=== PATIENT | female | born 1985 | race Caucasian/White ===

== ENCOUNTER 2016-10-07 21:01 | Emergency (ER) | payer MEDICAID ==
--- NOTE | 2016-10-09 04:19 | ER ---
ADMIT: 10/07/2016 RM/LOC: ER [facility] MR#: [id number] [address] [id number] DHEERAJ MCNEAL [address] [place] [address] Emergency Room Report SEX: F AGE: 30 : 1985 DATE: 10/07/2016 ADDENDUM: See T-sheet for complete H and P. A 30-year-old female, history of asthma, smokes about two packs a day, comes in short of breath. She states she feels like her asthma is getting worse. She has not been on steroids for several months now for her asthma. She does normally use a Proventil inhaler but ran out of it this morning. She did have gallbladder surgery approximately a week ago. She said she has been recovering fine from that. On physical exam, she does have some wheezes throughout but decent air movement initially. We did get her a DuoNeb and that improved her wheezes and she said she was feeling better. She was also given 60 mg of prednisone in the Emergency Department. A chest x-ray was done, which reveals no acute abnormality and her sats are fine and she is breathing comfortably, in no respiratory distress. She will be discharged home with instructions to quit smoking and to use a prednisone taper, which she is given a prescription for. She is also given albuterol inhaler here, and since she does not have a doctor in the area, she was given follow up with Dr. Livan Birmingham if she is not significantly improved next week. DIAGNOSES: 1. Acute asthma exacerbation. 2. Tobacco abuse. Festus Magana MD/ zunilda JOB #: [id number] CC: Festus Magana MD, Attending Physician Livan Birmingham MD, Family Physician
== END 2016-10-07 22:30 | disposition home or self-care (01) ==
LOC: ER 21:01
DX: J45.901 Unspecified asthma with (acute) exacerbation (principal); F31.9 Bipolar disorder, unspecified; I25.2 Old myocardial infarction; F17.210 Nicotine dependence, cigarettes, uncomplicated; Z88.8 Allergy status to other drugs, medicaments and biological substances

== ENCOUNTER 2016-10-30 11:17 | Emergency (ER) | payer MEDICAID ==
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
--- NOTE | 2016-11-03 14:46 | ER ---
ADMIT: 10/30/2016 RM/LOC: ER [facility] MR#: [id number] [address] [id number] DHEERAJ MCNEAL [address] [place] [address] Emergency Room Report SEX: F AGE: 31 : 1985 DATE: 10/30/2016 CHIEF COMPLAINT: Headache. HISTORY OF PRESENT ILLNESS: This is a 31-year-old that has a history of migraine. She has had this headache intermittently for the last 4 days and it is worse today. She states it is not like her typical migraine headache because usually that covers her whole entire head and this just covers her right eye. She has had some nausea, but no vomiting. Also just recently found out she is . She is two and a half months. COURSE IN THE EMERGENCY ROOM: I did give her a liter of fluids, Benadryl, and Reglan. This did not help much. So, we titrated some morphine for pain. She feels actually quite a bit better now, feels okay to go home and just try to rest and push fluids. DISPOSITION: I have sent her home, having her do fluids, rest, follow up as needed. MANOJ Rodriguez / Feliz Gao MD / modl JOB #: [id number] CC: Feliz Gao MD, Attending Physician Lee Sommer MD, Family Physician
== END 2016-10-30 13:56 | disposition home or self-care (01) ==
LOC: ER 11:17
DX: O99.351 Diseases of the nervous system complicating pregnancy, first trimester (principal); G43.909 Migraine, unspecified, not intractable, without status migrainosus; O99.511 Diseases of the respiratory system complicating pregnancy, first trimester; J45.909 Unspecified asthma, uncomplicated; O99.331 Smoking (tobacco) complicating pregnancy, first trimester; I25.2 Old myocardial infarction; Z95.5 Presence of coronary angioplasty implant and graft; Z98.890 Other specified postprocedural states; Z90.49 Acquired absence of other specified parts of digestive tract; Z88.1 Allergy status to other antibiotic agents; Z88.6 Allergy status to analgesic agent; Z79.899 Other long term (current) drug therapy